=== PATIENT | female | born 1960 | race Caucasian/White ===

== ENCOUNTER 2019-02-10 17:28 | Observation (INO) ==
[2019-02-10] MEDS ORDERED: Nitroglycerin 0.4 MG TAB.SUBL SL PRN (17:40)
--- NOTE | 2019-02-10 17:40 | Emergency Department Note ---
Disposition Clinical Impression: Chest pain Qualifiers: Chest pain type: chest pain due to myocardial ischemia Ischemic chest pain type: unstable angina pectoris Qualified Code(s): I20.0 - Unstable angina Disposition: Admitted As Inpatient Chest Pain HPI - General Chief Complaint: ED Chest Pain Stated Complaint: Chest Pain Time Seen by Provider: 02/10/19 17:38 Source: patient, EMS Limitations: no limitations Vital Signs Reviewed: Yes Nursing Notes Reviewed: Yes - History of Present Illness HPI Narrative: 58-year-old female presents emergency department with concern for chest pain. She was at her family care doctor and they sent her here. Patient took nitroglycerin prior to arrival. She stated this helped with some of her symptoms. Patient was still 47 out of 10 chest pain. Reported as dull in nature and did not radiate anywhere. Patient states that it feels the same as her previous heart attack. Patient reports nausea and diaphoresis, but no vomiting. Severity scale (1-10): 0 - Related Data Home Medications Medication Instructions Recorded Confirmed traZODone [TraZODone] 50 mg PO HS 11/20/15 02/10/19 Carvedilol [Coreg] 25 mg PO BID 11/17/17 02/10/19 ARIPiprazole [Abilify] 5 mg PO DAILY 02/10/19 02/10/19 Amlodipine Besylate 10 mg PO DAILY 02/10/19 02/10/19 Aspirin 325 mg PO DAILY 02/10/19 02/10/19 Citalopram Hydrobromide 40 mg PO DAILY 02/10/19 02/10/19 [Citalopram HBr] Levothyroxine Sodium [Synthroid] 200 mcg PO DAILY 02/10/19 02/10/19 Allergies Allergy/AdvReac Type Severity Reaction Status Date / Time No Known Allergies Allergy Verified 11/17/17 09:23 All systems ED: reviewed and negative except as stated. Review of Systems: As Per HPI Constitutional: Denies: fever Cardiovascular: Reports: chest pain. Denies: palpitations Respiratory: Denies: cough, dyspnea Gastrointestinal: Reports: nausea. Denies: abdominal pain, vomiting Musculoskeletal: Denies: back pain Chest Pain PMH - Past Medical History Medical history: Reports: hyperlipidemia, hypertension, myocardial infarction, thyroid disease Surgical history: Reports: angioplasty/stent Psychiatric history: Reports: anxiety, depression - Social History Smoking Status: Former smoker Alcohol use: Reports: none Drug use: Reports: none Physical Exam - General Limitations: no limitations General appearance: alert - Head Head exam: normocephalic - Eye Eye exam: Present: EOMI - ENT ENT exam: mucous membranes moist - Neck Neck exam: Present: trachea midline - Chest Chest inspection: Present: symmetric chest wall rise - Respiratory Respiratory exam: Present: normal lung sounds bilaterally. Absent: respiratory distress, accessory muscle use - Cardiovascular Cardiovascular exam: Present: regular rate, normal rhythm, normal heart sounds - Abdominal Exam Abdominal exam: Present: soft, Non-Tender. Absent: distention, guarding, rebound, rigidity - Extremities Exam Extremities exam: Absent: pedal edema - Back Exam Back exam: Present: full ROM - Neurological Exam Neurological exam: Present: alert, oriented X3 - Psychiatric Psychiatric exam: Present: normal affect, normal mood - Skin Skin exam: Present: diaphoresis Course Vital Signs Temperature 98.5 F 02/10/19 17:37 Pulse Rate 74 02/10/19 17:37 Respiratory Rate 18 02/10/19 17:37 Blood Pressure 173/111 02/10/19 17:37 O2 Sat by Pulse Oximetry 95 02/10/19 17:37 Temperature 97.9 F 02/10/19 21:27 Pulse Rate 78 02/10/19 21:27 Respiratory Rate 16 02/10/19 21:27 Blood Pressure 151/97 02/10/19 20:13 O2 Sat by Pulse Oximetry 96 02/10/19 21:27 Oxygen Delivery Oxygen Delivery Room Air Chest Pain - MDM Narrative Medical decision making narrative: 58-year-old female presents emergency department for concern for chest pain and diaphoresis. ECG did not reveal any ischemic ST changes. Troponin was negative. Chest x-ray was normal. Heart score 4. We gave patient nitroglycerin and her chest pain resolved completely. Patient to be admitted as she is high risk for ACS. Hospitalist agreed to accept the patient. Chest X-Ray 02/10/19 17:39 IMPRESSION: No acute cardiopulmonary process D/ / Reece Ferreira / Reece Ferreira Interpreting Provider: Reece Ferreira - Lab Data Result diagrams: 02/10/19 17:44 02/10/19 17:44 Lab Results 02/10/19 02/10/19 Range/Units 17:44 17:44 WBC 10.9 (4.3-11.1) K/mcL RBC 5.71 H (3.82-4.97) M/mcL Hgb 16.9 H (11.5-15.4) g/dL Hct 49.7 H (35.3-44.9) % MCV 87.0 (83.0-100.0) fL MCH 29.6 (28.0-33.3) pg MCHC 34.0 (31.6-35.5) g/dL RDW 13.2 (11.5-14.5) % Plt Count 350 (140-400) K/mcL MPV 9.8 (9.4-12.4) fL Immature Gran % 0.5 (0-4) % Seg Neutrophils % 54.8 % Lymphocytes % 35.1 % Monocytes % 6.1 % Eosinophils % 2.7 % Basophils % 0.8 % Neutrophils # 6.0 (1.6-8.9) K/mcL Lymphocytes # 3.8 (0.6-4.6) K/mcL Monocytes # 0.7 (0.0-1.3) K/mcL Eosinophils # 0.3 (0.0-0.6) K/mcL Basophils # 0.1 (0.0-0.2) K/mcL Sodium 139 (136-145) mEq/L Potassium 3.5 (3.5-5.1) mEq/L Chloride 99 (98-107) mEq/L Carbon Dioxide 29 (23-29) mEq/L BUN 14 (6-20) mg/dL Creatinine 0.63 (0.60-1.20) mg/dL Est GFR ( Amer) > 60 (> 60) Est GFR (Non-Af Amer) > 60 (> 60) BUN/Creatinine Ratio 22 (6-26) Glucose 98 (70-105) mg/dL Calculated Osmolality 288 (280-300) Calcium 9.2 (8.6-10.3) mg/dL Troponin I < 0.03 (< 0.04) ng/mL Heart Score - Score History: Moderately Suspicious EKG: Normal Age: 45-65 Risk Factors: Equal/Greater than 3 risk factor or history of atherosclerotic disease Troponin: Less than normal limit HEART Score Total: 4
--- NOTE | 2019-02-10 17:46 | Emergency Department Note ---
Disposition Clinical Impression: Chest pain Qualifiers: Chest pain type: chest pain due to myocardial ischemia Ischemic chest pain type: unstable angina pectoris Qualified Code(s): I20.0 - Unstable angina Disposition: Admitted As Inpatient Forms: ED Satisfaction Letter General Adult HPI - General Stated complaint: Chest Pain Time Seen by Provider: 02/10/19 17:38 Source: patient, EMS Limitations: no limitations Nursing Notes Reviewed: Yes Vital Signs Reviewed: Yes - History of Present Illness HPI Narrative: Attestation note: Patient was seen with the emergency medicine resident/nurse practitioner/physician assistant strength coach/transitional resident/medical student: Dr. Guru Pimentel I have personally performed a face to face evaluation on this patient. I have reviewed and agree with history and physical examination patient management and disposition. Briefly the salient points of the case are as follows: 58-year-old female history of DE and 2 stents sent from her physician's office for high blood pressure and chest pain patient is diaphoretic EKG shows a sinus rhythm at 69 bpm normal OR QRS and QT corrected. No acute ST elevations or depressions, no acute ischemic changes compared to prior EKG dated 07/11/2015. Patient will undergo cardiac workup nitroglycerin or aspirin. She has taken it earlier patient will be admitted for acute coronary syndrome/unstable angina. Patient disposition pending, providing 45 minutes of critical care service for this patient. Pain Scale: 0 - Related Data Home Medications Medication Instructions Recorded Confirmed Aspirin [Ecotrin] 325 mg PO DAILY 11/20/15 11/17/17 Levothyroxine [Synthroid] 175 mcg PO DAILY 11/20/15 11/17/17 Losartan/Hydrochlorothiazide 1 each PO DAILY 11/20/15 11/17/17 [Hyzaar 100-25 Tablet] traZODone [TraZODone] 50 mg PO HS 11/20/15 11/17/17 Citalopram [CeleXA] 20 mg PO DAILY 08/30/17 11/17/17 Amlodipine Besylate 10 mg PO DAILY 11/17/17 11/17/17 Carvedilol [Coreg] 25 mg PO BID 11/17/17 11/17/17 Allergies Allergy/AdvReac Type Severity Reaction Status Date / Time No Known Allergies Allergy Verified 11/17/17 09:23 Past Medical History - Past Medical History Medical history: Reports: hyperlipidemia, hypertension, myocardial infarction, thyroid disease Surgical history: Reports: angioplasty/stent Psychiatric history: Reports: anxiety, depression - Social History Smoking Status: Former smoker Smokeless Tobacco Status: No Alcohol use: Reports: none Drug use: Reports: none Physical Exam - General Limitations: no limitations General appearance: alert Course Vital Signs Temperature 98.5 F 02/10/19 17:37 Pulse Rate 74 02/10/19 17:37 Respiratory Rate 18 02/10/19 17:37 Blood Pressure 173/111 02/10/19 17:37 O2 Sat by Pulse Oximetry 95 02/10/19 17:37 Temperature 98.5 F 02/10/19 17:37 Pulse Rate 74 02/10/19 17:37 Respiratory Rate 18 02/10/19 17:37 Blood Pressure 173/111 02/10/19 17:37 O2 Sat by Pulse Oximetry 95 02/10/19 17:37 Oxygen Delivery Oxygen Delivery Room Air
[2019-02-10 17:58] LABS: Basophils # 0.1 K/mcL (0.0-0.2); Basophils % 0.8 %; Eosinophils # 0.3 K/mcL (0.0-0.6); Eosinophils % 2.7 %; Hematocrit 49.7 % (35.3-44.9); Hemoglobin 16.9 g/dL (11.5-15.4); Immature Granulocytes % 0.5 % (0-4); Lymphocytes # 3.8 K/mcL (0.6-4.6); Lymphocytes % 35.1 %; Mean Corpuscular Hemoglobin 29.6 pg (28.0-33.3); Mean Platelet Volume 9.8 fL (9.4-12.4); Monocytes # 0.7 K/mcL (0.0-1.3); Monocytes % 6.1 %; Platelet Count 350 K/mcL (140-400); Red Blood Count 5.71 M/mcL (3.82-4.97); Red Cell Distribution Width 13.2 % (11.5-14.5); Segmented Neutrophils % 54.8 %
[2019-02-10 18:26] LABS: BUN/Creatinine Ratio 22 (6-26); Blood Urea Nitrogen 14 mg/dL (6-20); Calcium 9.2 mg/dL (8.6-10.3); Carbon Dioxide 29 mEq/L (23-29); Chloride 99 mEq/L (98-107); Glucose 98 mg/dL (70-105); Osmolality,Calculated 288 (280-300); Potassium 3.5 mEq/L (3.5-5.1); Sodium 139 mEq/L (136-145); Troponin I < 0.03 ng/mL (< 0.04); eGFR For Non-African Americans > 60 (> 60)
[2019-02-10] MEDS ORDERED: Naloxone 0.4 MG/ML INJ IVP PRN (21:56)
--- NOTE | 2019-02-10 22:28 | Internal Med History&Physical ---
Date of Encounter: 02/11/19 Time of Encounter: 21:42 Internal Medicine - H&P: HPI Chief complaint: Chest pain Admitted From: Emergency Dept Plans for Post Hospital Care: Home History of present illness: Ms. Sharp is a 58 year old female Patient presented to the ER with chest pain. She had gone to her PCP's office earlier in the day because she was also noticing an elevated blood pressure. She ran out of her blood pressure meds last night and this morning her blood pressure was 221/119. Her PCP sent her to the ER for further evaluation because of the chest pain. She did receive a dose of nitro prior to arrival. Pain is dull in nature, without radiation. She has a history of previous MD in 2008 and received 2 stents at that time. In the ER patient's vital signs were within normal limits aside from a blood pr essure of 173/111. CBC and BMP were also normal. Initial troponin was undetectable. Chest x-ray showed no acute process. EKG showed no ischemic changes, and was similar to previous. She did not receive anything for her blood pressure but on recheck it had improved to 151/97. She was sent to the medical floor for further monitoring. Upon my assessment patient is resting comfortably in the hospital bed in no acute distress she denies chest pain, abdominal pain, nausea, vomiting, diarrhea and constipation. She also denies shortness of breath and vision changes. She did say that while driving to her doctor's office today her vision was more blurry than normal. This has since improved back to her baseline. She does wear glasses. She also states that about 10 days ago she had chest pain, but she did not come in to be evaluated. She states that she has a significant family history of hypertension in her brothers and sister. Her mother had ALS. She is a full code. Past Med Surg Social Fam HX - Past Medical History Medical history: hyperlipidemia, hypertension, myocardial infarction, thyroid disease Psychiatric history: anxiety, depression - Past Surgical History Surgical History: angioplasty/stent - Social History Smoking Status: Former smoker Smokeless Tobacco Status: No Alcohol use: none Drug use: none - Family History Sister Living Status: Still Living Hx Family Cardiac Disorders: Yes (hypertension) Internal Medicine - H&P: Meds traZODone [TraZODone] 50 mg PO HS 11/20/15 [History] Carvedilol [Coreg] 25 mg PO BID 11/17/17 [History] ARIPiprazole [Abilify] 5 mg PO DAILY 02/10/19 [History] Amlodipine Besylate 10 mg PO DAILY 02/10/19 [History] Aspirin 325 mg PO DAILY 02/10/19 [History] Citalopram Hydrobromide [Citalopram HBr] 40 mg PO DAILY 02/10/19 [History] Levothyroxine Sodium [Synthroid] 200 mcg PO DAILY 02/10/19 [History] Allergy/AdvReac Type Severity Reaction Status Date / Time No Known Allergies Allergy Verified 11/17/17 09:23 All Systems PM: A 10-system review of systems was performed and is negative for pertinent findings except as documented above in the HPI. - Constitutional Vitals: Temp Pulse Resp BP Pulse Ox 97.9 F 78 16 151/97 96 02/10/19 21:27 02/10/19 21:27 02/10/19 21:27 02/10/19 20:13 02/10/19 21:27 General appearance: Present: cooperative, A&O X 3, pleasant, no acute distress, answers questions appropriately Exam: - - Head Head exam: Present: normal inspection - Eye Eye exam: Present: EOMI, normal appearance - Respiratory Respiratory exam: Present: CTAB. Absent: rales, respiratory distress, rhonchi, wheezes - Cardiovascular Cardiovascular exam: Present: RRR. Absent: diastolic murmur, systolic murmur - GI/Abdominal GI/Abdominal exam: Present: normal bowel sounds, soft. Absent: tenderness - Extremities Exam Extremities exam: Present: warm, radial pulses palpable and symmetrical. Absent: calf tenderness, pedal edema, tenderness - Neurological Exam Neurological exam: Present: motor sensory deficit, facial droop, speech deficit. Absent: no focal deficits, strengths equal and symetr throughout - Skin Skin exam: Present: dry, normal color, warm Internal Med - H&P Results - Labs CBC & Chem 7: 02/10/19 17:44 02/10/19 17:44 Labs: Short CBC 02/10/19 Range/Units 17:44 WBC 10.9 (4.3-11.1) K/mcL Hgb 16.9 H (11.5-15.4) g/dL Hct 49.7 H (35.3-44.9) % Plt Count 350 (140-400) K/mcL Neutrophils # 6.0 (1.6-8.9) K/mcL BMP 02/10/19 17:44 Sodium 139 Potassium 3.5 Chloride 99 Carbon Dioxide 29 BUN 14 Creatinine 0.63 Glucose 98 Calcium 9.2 Cardiac Enzymes 02/10/19 Range/Units 17:44 Troponin I < 0.03 (< 0.04) ng/mL - Impressions ITS Impressions Chest X-Ray 02/10/19 17:39 IMPRESSION: No acute cardiopulmonary process D/ / Reece Ferreira / Reece Ferreira Interpreting Provider: Reece Ferreira - Assessment and Plan (1) Chest pain Current Visit: Yes Status: Acute Assessment and plan: Patient's chest pain has resolved. Troponin undetectable thus far. Continue to trend troponins Cardiac monitoring Nothing by mouth diet Pain control as needed. Qualifiers: Chest pain type: chest pain due to myocardial ischemia Ischemic chest pain type: unstable angina pectoris Qualified Code(s): I20.0 - Unstable angina (2) Hypertension Current Visit: Yes Status: Acute Assessment and plan: Continue to monitor, patient's blood pressure still slightly elevated. IV hydralazine 10mg Q6H PRN Continue home meds at discharge Qualifiers: Hypertension type: essential hypertension Qualified Code(s): I10 - Essential (primary) hypertension (3) Hypothyroidism Current Visit: Yes Status: Acute Assessment and plan: Continue home meds at discharge Qualifiers: Hypothyroidism type: unspecified Qualified Code(s): E03.9 - Hypothyroidism, unspecified (4) DVT prophylaxis Current Visit: Yes Status: Acute Assessment and plan: Subcutaneous heparin - Time Spent With Patient Total time spent is greater than 50% in coordination of care (as documented) at patient's floor/unit and/or counseling patient: Greater than 35 minutes
[2019-02-11] MEDS ORDERED: *HR* HYDROcodone/Acet 5/325 mg TABLET PO PRN (04:54)
[2019-02-11] MEDS ORDERED: Acetaminophen 325 MG TABLET PO PRN (04:54)
[2019-02-11] MEDS ORDERED: *HR* Heparin 5,000 UNIT/ML VIAL SQ SCH (06:00)
[2019-02-11 07:02] LABS: BUN/Creatinine Ratio 21 (6-26); Blood Urea Nitrogen 11 mg/dL (6-20); Calcium 9.2 mg/dL (8.6-10.3); Carbon Dioxide 27 mEq/L (23-29); Chloride 99 mEq/L (98-107); Glucose 161 mg/dL (70-105); Osmolality,Calculated 287 (280-300); Potassium 2.9 mEq/L (3.5-5.1); Sodium 137 mEq/L (136-145); Troponin I < 0.03 ng/mL (< 0.04); eGFR For Non-African Americans > 60 (> 60)
[2019-02-11] MEDS ORDERED: amLODIPine 5 MG TABLET PO SCH (09:00)
[2019-02-11] MEDS ORDERED: ARIPiprazole 5 MG TABLET PO SCH (09:00)
[2019-02-11] MEDS: Potassium Chloride Elixir 20 MEQ/15 ML UDC PO SCH ×2 (09:56→12:22)
--- NOTE | 2019-02-11 11:37 | Discharge Summary ---
<Brent Salvador - Last Filed: 02/11/19 16:24> Orders not resulted at time of discharge: Pending orders 02/10/19 17:39 ECG 12 lead ECG [ECG] Stat 02/11/19 08:20 TSH [Thyroid Stimulating Hormone] Routine 02/12/19 05:45 Complete Blood Count w/o Diff [HEME] Timed Date of Encounter: 02/11/19 Time of Encounter: 11:35 - Discharge Diagnosis (1) Chest pain Priority: Primary Status: Resolved Qualifiers: Chest pain type: chest pain due to myocardial ischemia Ischemic chest pain type: unstable angina pectoris Qualified Code(s): I20.0 - Unstable angina (2) CAD (coronary artery disease) Priority: Primary Status: Chronic Qualifiers: Coronary Disease-Associated Artery/Lesion type: [place] artery [place] vs. transplanted heart: [place] heart Associated angina: with unstable angina Qualified Code(s): I25.110 - Atherosclerotic heart disease of [place] coronary artery with unstable angina pectoris (3) Polycythemia Priority: Secondary Status: Chronic (4) Hypertension Priority: Secondary Status: Chronic Qualifiers: Hypertension type: essential hypertension Qualified Code(s): I10 - Essential (primary) hypertension (5) DVT prophylaxis Priority: Secondary Status: Acute (6) Hypothyroidism Priority: Secondary Status: Chronic Qualifiers: Hypothyroidism type: unspecified Qualified Code(s): E03.9 - Hypothyroidism, unspecified (7) Hypokalemia Priority: Secondary Status: Acute Assessment and Plan: Patient given 80 mEq of potassium on the day of discharge. Hospital course: Ms. Sharp is a 58 year old female with history of hyperlipidemia, hypertension, myocardial infarction, thyroid disease presented chief complaint c hest pain. patient was initially at her primary care physician's office and was found to have a blood pressure of 221/119 and was sent to the ER for further evaluation of chest pain. She reported the chest pain is dull in nature without radiation. She had a history of previous DE in 2008 with 2 stents placed at that time. Patient went chest pain workup including chest x-ray, EKG, troponin which were all negative. overnight patient receivedIV hydralazine which made her have upset stomach, nausea, vomiting. She reports this morning this is getting better. She denies any chest pain or shortness of breath this morning.her morning blood pressure was 174/99 and her home blood pressure medications were restarted. patient's echocardiogram was normal. She also reported to me that she discontinued her losartan and hydrochlorothiazide because of the recall has not told anyone about this.we will restart patient on her losartan hydrochlorothiazide and her blood pressure improved. - Time Spent with Patient Total time spent providing and/or coordinating discharge services: - Discharge Medications Prescriptions: New Nystatin POWDER [Nystop] 1 appl TP TID #30 gm Losartan/Hydrochlorothiazide [Losartan-Hctz 100-25 mg Tab] 1 each PO DAILY #30 tablet Continue traZODone [TraZODone] 50 mg PO HS Levothyroxine Sodium [Synthroid] 200 mcg PO DAILY Citalopram Hydrobromide [Citalopram HBr] 40 mg PO DAILY ARIPiprazole [Abilify] 5 mg PO DAILY Aspirin 325 mg PO DAILY Amlodipine Besylate 10 mg PO DAILY #30 tablet Carvedilol [Coreg] 25 mg PO BID #60 tablet Home Medications: traZODone [TraZODone] 50 mg PO HS 11/20/15 [History] ARIPiprazole [Abilify] 5 mg PO DAILY 02/10/19 [History] Aspirin 325 mg PO DAILY 02/10/19 [History] Citalopram Hydrobromide [Citalopram HBr] 40 mg PO DAILY 02/10/19 [History] Levothyroxine Sodium [Synthroid] 200 mcg PO DAILY 02/10/19 [History] Amlodipine Besylate 10 mg PO DAILY #30 tablet 02/11/19 [Rx] Carvedilol [Coreg] 25 mg PO BID #60 tablet 02/11/19 [Rx] Losartan/Hydrochlorothiazide [Losartan-Hctz 100-25 mg Tab] 1 each PO DAILY #30 tablet 02/11/19 [Rx] Nystatin POWDER [Nystop] 1 appl TP TID #30 gm 02/11/19 [Rx] Allergies/Adverse Reactions: Allergy/AdvReac Type Severity Reaction Status Date / Time No Known Allergies Allergy Verified 11/17/17 09:23 Date of admission: 02/10/19 19:38 Primary care physician: Evelyne Marquez CNP Discharging clinician: Brent Salvador Anticipated date of discharge: 02/11/19 - Constitutional Vitals: Temp Pulse Resp BP Pulse Ox 98.1 F 72 15 179/107 95 02/11/19 07:27 02/11/19 07:27 02/11/19 07:27 02/11/19 07:27 02/11/19 07:27 General appearance: Present: cooperative, A&O X 3, pleasant, no acute distress, answers questions appropriately Exam: General: pleasant, without distress Cardiovascualr: Regular rate and rhythm with no murmur, absent gallops or rubs, absent pedal edema, radial pulses 2 out of 4 Lungs: Clear to auscultation bilaterally, not in respiratory distress Abdomen: Soft nontender, nondistended positive bowel sounds, absent hepatomegaly Skin: warm and dry, absent rash, absent open wounds and nodules MSK: absent clubbing, cyanosis, joints without swelling Neuro: Cranial nerves II through XII intact, UE and LE sensation equal bilaterally, UE and LEstrength 5/5, alert oriented 3, Psych: good insight and judgment - Patient Status Disposition: Home, Self-Care Functional capacity at discharge: independent ambulation Overall status at discharge: patient is progressing back to baseline - Discharge Instructions Instructions: Nystatin (On the skin), Chest Pain (DC), Hypokalemia (DC), Hypothyroidism (DC), Chronic Hypertension (DC) Follow Up With: Evelyne Marquez CNP [Primary Care Provider] - (Appointment has been requested. Our offices will call with an appointment time and date. If you do not hear from us please call and schedule an appointment within 7 days.) - Diet and Activity Activity: increase activity as tolerated Diet: low fat, low cholesterol, low salt diet <Geovany Davis - Last Filed: 02/11/19 16:39> Date of Encounter: 02/11/19 Hospital course: Ms. Sharp is a 58 year old female - Time Spent with Patient Total time spent providing and/or coordinating discharge services: Date of admission: 02/10/19 19:38 Primary care physician: Evelyne Marquez CNP - Constitutional Vitals: Temp Pulse Resp BP Pulse Ox 97.9 F 84 16 158/99 94 02/11/19 15:48 02/11/19 15:48 02/11/19 15:48 02/11/19 15:48 02/11/19 15:48 - Attending Attestation I examined this patient and my medical decision-making was reviewed with the Resident Physician. I agree with the documented findings, disposition and treatment plan as described except to the extent set forth below.
[2019-02-11] MEDS ORDERED: Losartan/HCTZ 50-12.5 TABLET PO SCH (13:15)
[2019-02-11 15:05] LABS: Thyroid Stimulating Hormone 2.509 mcIU/mL (0.340-5.600)
[2019-02-11] MEDS: Nystatin POWDER 30 GM BOTTLE TP SCH ×2 (15:06→15:07)
[2019-02-11 15:52] VITALS: BP 158/99
[2019-02-11] MEDS ORDERED: traZODone 50 MG TABLET PO SCH (21:00)
--- NOTE | 2019-02-14 09:28 | Electrocardiograph Report ---
[place] [facility] Test Date: 2019-02-10 Pat Name: Harper Sharp Department: EXAM19 Room: 3B55 Gender: F Floor Sweeper: : 1960 Requested By: Guru Pimentel Order Number: [id number] Reading MD: Cedric Menjivar Measurements Intervals [place] Rate: 69 P: -12 MI: 180 QRS: 2 QRSD: 107 T: 27 QT: 439 QTc: 471 Interpretive Statements Sinus rhythm Electronically Signed On 02-14-2019 9:27:16 EDT by Cedric Menjivar
== END 2019-02-11 16:33 | disposition home or self-care (01) ==
LOC: EMEROOARM 17:28 → 3BNU 17:28
PROVIDERS: ADMIT Internal Medicine; ATTEND Internal Medicine